=== PATIENT | male | born 1975 | race Caucasian/White ===

== ENCOUNTER → 2017-12-11 06:49 | Outpatient (CLI) | payer OTHER ==
[~2017-12-11 06:49] MED LIST: ALLEGRA ALLERG180 MG PO; FLONASE16 GM NS; SINGULAIR 10MG10 MG PO; ZITHROMAX TRI-500 MG PO
== END | disposition home or self-care (01) ==
LOC: LAB 06:49
DX: Z60.2 Problems related to living alone (principal); E78.2 Mixed hyperlipidemia; R73.01 Impaired fasting glucose; J32.8 Other chronic sinusitis; R09.82 Postnasal drip; R19.5 Other fecal abnormalities; D50.8 Other iron deficiency anemias; D51.8 Other vitamin B12 deficiency anemias; Z68.25 Body mass index [BMI] 25.0-25.9, adult

== ENCOUNTER → 2018-08-22 06:28 | Outpatient (CLI) | payer OTHER | END | disposition home or self-care (01) | LOC: LAB 06:28 | DX: R68.89 Other general symptoms and signs (principal); D64.89 Other specified anemias; Z00.8 Encounter for other general examination; Z12.5 Encounter for screening for malignant neoplasm of prostate; Z12.11 Encounter for screening for malignant neoplasm of colon ==

== ENCOUNTER → 2019-09-02 08:34 | Outpatient (CLI) | payer OTHER | END | disposition home or self-care (01) | LOC: LAB 08:34 | DX: D64.89 Other specified anemias (principal); R94.7 Abnormal results of other endocrine function studies; K76.0 Fatty (change of) liver, not elsewhere classified ==

== ENCOUNTER 2021-01-23 06:15 | Outpatient (CLI) | payer OTHER | END 2021-01-23 06:18 | disposition home or self-care (01) | LOC: LAB 06:15 | PROVIDERS: ATTEND Internal Medicine Endocrinology, Diabetes & Metabolism | DX: Z90.6 Acquired absence of other parts of urinary tract (principal); Z72.4 Inappropriate diet and eating habits ==

== ENCOUNTER 2021-03-22 06:36 | Outpatient (CLI) | payer OTHER | END 2021-03-22 17:11 | disposition home or self-care (01) | LOC: LAB 06:36 | DX: R00.2 Palpitations (principal); I11.9 Hypertensive heart disease without heart failure; E11.9 Type 2 diabetes mellitus without complications; E78.2 Mixed hyperlipidemia; U07.1 COVID-19; Z11.52 Encounter for screening for COVID-19; Z20.822 Contact with and (suspected) exposure to COVID-19 ==

== ENCOUNTER 2021-05-30 13:03 | Emergency (ER) | payer OTHER ==
[~2021-05-30] VITALS: Ht 294.6 cm; Wt 70.3 kg
[2021-05-30] MEDS ORDERED: ZYRTEC10 M3 (13:17)
== END 2021-05-30 19:51 | disposition home or self-care (01) ==
LOC: ER 13:03
DX: J06.9 Acute upper respiratory infection, unspecified (principal)

== ENCOUNTER 2021-11-22 07:11 | Outpatient (CLI) | payer OTHER ==
[~2021-11-22 07:11] MED LIST changes: +ZYRTEC10 M3
== END 2021-11-22 07:18 | disposition home or self-care (01) ==
LOC: SONOGRAMA 07:11
DX: M72.2 Plantar fascial fibromatosis (principal)

== ENCOUNTER → 2021-12-08 06:14 | Outpatient (CLI) | payer OTHER | END | disposition home or self-care (01) | LOC: LAB 06:14 | PROVIDERS: ATTEND Internal Medicine Cardiovascular Disease | DX: R00.2 Palpitations (principal); I11.9 Hypertensive heart disease without heart failure; E11.9 Type 2 diabetes mellitus without complications; E78.2 Mixed hyperlipidemia ==

== ENCOUNTER 2023-11-28 12:36 | Day surgery (SDC) | payer OTHER ==
[2023-11-20 08:59] LABS: HEMATOCRIT 40.3 % (39.0-48.0); HEMOGLOBIN 14.2 g/dL (13-16.00); MEAN CELL VOLUME 87.3 fL (80.0-100.00); MEAN CORPUSCULAR HEMOGLOBIN 30.7 pg (27.00-32.0); MEAN CORPUSCULAR HGB CONC 35.1 g/dl (32.0-36.0); PLATELET COUNT 388 K/uL (150-450); RED BLOOD COUNT 4.62 M/uL (4.00-6.00); RED CELL DISTRIBUTION WIDTH 12.6 % (11.5-14.5)
[2023-11-20 09:01] LABS: URINE APPEARANCE Clear; URINE BILIRRUBIN Negative (NEGATIVE); URINE BLOOD Negative; URINE COLOR Yellow; URINE GLUCOSE Negative (NEGATIVE); URINE LEUKOCYTE Negative; URINE NITRATE Negative; URINE PROTEIN Negative (NEGATIVE); URINE UROBILINOGEN 0.2 E.U./dl
[2023-11-20 09:10] LABS: URINE BACTERIA 6.2 uL (0.0-1933)
[2023-11-20 09:17] LABS: URINE EPITHELIAL CELLS 1.2 uL (0.0-38.8); URINE RBC 0.1 uL (0.0-20.8); URINE WBC 0 uL (0.0-23.2)
[2023-11-20 09:22] LABS: INR 1.04; PARTIAL THROMBOPLASTIN TIME 29.8 SECONDS (22.0-34.0); PROTHROMBIN TIME 10.9 SECONDS (9.0-11.5)
[2023-11-20 09:29] LABS: CALCIUM 9.3 mg/dL (8.5-10.1); CREATININE SERUM 0.78 mg/dL (0.70-1.30); GFR 106.69; POTASSIUM 4.16 mEq/L (3.5-5.1)
[~2023-11-28] VITALS: Ht 165.1 cm; Wt 71.2 kg
[~2023-11-28 12:36] MED LIST changes: +IRBESARTAN75 MG PO
[2023-11-28] MEDS ORDERED: TYLENOL ARTHRI650 MG PO (15:35)
[2023-11-28] MEDS ORDERED: KETO10TA2 PO (15:35)
== END 2023-11-28 16:50 | disposition home or self-care (01) ==
LOC: CIR.AMB 12:36
PROVIDERS: ATTEND Surgery
DX: D17.1 Benign lipomatous neoplasm of skin and subcutaneous tissue of trunk (principal); Z20.822 Contact with and (suspected) exposure to COVID-19; I10 Essential (primary) hypertension; Z88.0 Allergy status to penicillin; Z91.014 Allergy to mammalian meats